=== PATIENT | male | born 1995 | race Asian ===

== ENCOUNTER 2021-12-05 20:50 | Emergency (ER) | payer OTHER ==
[~2021-12-05] VITALS: Ht 177.8 cm; Wt 74.8 kg
[2021-12-05 20:53] VITALS: BP 132/81
--- NOTE | 2021-12-05 20:53 | NUR ---
PT MICHAEL SILVA, TAKEN TO LOBBY BY DEVONTE [id number]
--- NOTE | 2021-12-05 23:00 | NUR ---
PER ER ADMITTING, PT [id number] [id number]
== END 2021-12-05 23:00 | disposition left against medical advice (07) ==
LOC: MED 20:50
DX: R06.02 Shortness of breath (principal); Z53.21 Procedure and treatment not carried out due to patient leaving prior to being seen by health care provider